=== PATIENT | female | born 2000 | race African-American/Black ===

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

== ENCOUNTER 2020-06-27 19:35 | Emergency (ER) | payer MEDICAID ==
[~2020-06-27] VITALS: Ht 162.6 cm; Wt 52.6 kg
[2020-06-27] MEDS ORDERED: Morphine Sulfate 4mg/ml Inj (IV USE ONLY) IVP ONE ×3 (20:15→23:30)
--- NOTE | 2020-06-27 20:19 | NUR ---
[facility] [place]
--- NOTE | 2020-06-27 20:25 | NUR ---
ED Nurse Note: Recieved pt from home, here with c/o severe abdominal pain with nausea and vomiting x 2 days after drinking alcohol, pt denies fevers, diarrhea, chest pain, sob, or any other complaints, pt states she has hx of gastritis and this has happend before, pt immediately gowned and placed on monitoring, IV line palced and labs drawn, will resume care as ordered and clsoely monitor, pt immediately medicated.
[2020-06-27 20:47] LABS: HEMATOCRIT 40.2 % (37.0-47.0); HEMOGLOBIN 13.8 G/DL (12.0-16.0); MEAN CORPUSCULAR VOLUME 92 FL (80-99); PLATELET COUNT 306 K/UL (150-450); RED BLOOD COUNT 4.36 M/UL (4.20-5.40); RED CELL DISTRIBUTION WIDTH 11.4 % (11.6-14.8); WHITE BLOOD COUNT 14.4 K/UL (4.8-10.8)
[2020-06-27 20:52] LABS: ANION GAP 13 mmol/L (5-15); BLOOD UREA NITROGEN 11 mg/dL (7-18); CARBON DIOXIDE 21 MMOL/L (21-32); CHLORIDE 104 MMOL/L (98-107); CREATININE 0.9 MG/DL (0.55-1.30); POTASSIUM 4.2 MMOL/L (3.5-5.1); SODIUM 138 MMOL/L (136-145)
[2020-06-27 21:04] LABS: ALANINE AMINOTRANSFERASE 16 U/L (12-78); ALBUMIN 4.7 G/DL (3.4-5.0); ALBUMIN/GLOBULIN RATIO 1.3 (1.0-2.7); ALKALINE PHOSPHATASE 62 U/L (46-116); ASPARTATE AMINO TRANSFERASE 20 U/L (15-37); BILIRUBIN,TOTAL 0.7 MG/DL (0.2-1.0)
[2020-06-27 21:10] VITALS: BP 119/59
[2020-06-27] MEDS ORDERED: Omnipaque-300 100ml vial INJ PRN (21:30)
--- NOTE | 2020-06-27 21:31 | Emergency Room Report ---
History of Present Illness General Chief Complaint: Nausea, Vomiting, and Diarrhea Source: Patient (Gomez Ramirez MD) Present Illness HPI 20-year-old female presents to ED for evaluation. Complaining of abdominal pain with nausea and vomiting. Multiple episodes of vomiting since 1 AM. Drank some shots of tequila. Pain is epigastric, burning, 8 out of 10, nonradiating. Denies any diarrhea. No other aggravating relieving factors. Denies any other associated symptoms (Gomez Ramirez MD) Allergies: Coded Allergies: No Known Allergies (Unverified , 06/01/16) COVID-19 Screening Contact w/high risk pt: No Experienced COVID-19 symptoms?: No COVID-19 Testing performed ELEMENTARY READING TUTOR: No (Gomez Ramirez MD) Patient History Past Medical History: none Past Surgical History: none Pertinent Family History: none Social History: Denies: smoking, alcohol use, drug use Now: No Immunizations: UTD Reviewed Nursing Documentation: PMH: Agreed; PSxH: Agreed (Gomez Ramirez MD) Nursing Documentation-PMH Past Medical History: No Stated History (Gomez Ramirez MD) Review of Systems All Other Systems: negative except mentioned in HPI (Gomez Ramirez MD) Physical Exam Vital Signs Date Time Temp Pulse Resp B/P (MAP) Pulse Ox O2 Delivery O2 Flow Rate FiO2 06/27/20 20:12 98.4 67 16 96/56 (69) 100 Room Air Sp02 EP Interpretation: reviewed, normal General Appearance: alert, GCS 15, non-toxic, mild distress Head: normocephalic, atraumatic Eyes: bilateral eye normal inspection, bilateral eye PERRL ENT: hearing grossly normal, normal pharynx, no angioedema, normal voice Neck: full range of motion, supple/symm/no masses Respiratory: chest non-tender, lungs clear, normal breath sounds, speaking full sentences Cardiovascular #1: regular rate, rhythm, no edema Cardiovascular #2: 2+ carotid (R), 2+ carotid (L), 2+ radial (R), 2+ radial (L), 2+ dorsalis pedis (R), 2+ dorsalis pedis (L) Gastrointestinal: normal bowel sounds, soft, non-distended, no guarding, no rebound, tenderness - epigastric Rectal: deferred Genitourinary: normal inspection, no CVA tenderness Musculoskeletal: back normal, normal range of motion, gait/station normal, non- tender Neurologic: alert, motor strength/tone normal, oriented x3, sensory intact, responsive, speech normal Psychiatric: judgement/insight normal, memory normal, mood/affect normal, no suicidal/homicidal ideation Reflexes: 3+ bicep (R), 3+ bicep (L), 3+ tricep (R), 3+ tricep (L), 3+ knee (R), 3+ knee (L) Skin: no rash Lymphatic: no adenopathy (Gomez Ramirez MD) Medical Decision Making Diagnostic Impression: Primary Impression: Hyperemesis gravidarum Additional Impression: First trimester ER Course Patient was signed out to me. She presents with epigastric pain with nausea and vomiting. She is . Ultrasound shows 6-week IUP. The symptom is consistent with hyperemesis gravidarum. Patient felt better now. She has Zofran at home. No evidence of ectopic or torsion. No evidence of an acute abdomen. Will discharge home. (Negrito Gonzalez MD) CT/MRI/US Diagnostic Results CT/MRI/US Diagnostic Results : Imaging Test Ordered: OB ultrasound Impression Read by radiologist. 6 weeks IUP. No other abnormality seen. (Negrito Gonzalez MD) Last Vital Signs Date Time Temp Pulse Resp B/P (MAP) Pulse Ox O2 Delivery O2 Flow Rate FiO2 06/27/20 20:12 98.4 67 16 96/56 (69) 100 Room Air (Gomez Ramirez MD) Status: improved (Negrito Gonzalez MD) Disposition: HOME, SELF-CARE Condition: Improved Scripts Hydrocodone/Acetaminophen 5-325* (HYDROCODONE/ACETAMINOPHEN 5-325*) 1 Each Tablet 1 TAB ORAL Q6H PRN for For Pain, #10 TAB 0 Refills Prov: Negrito Gonzalez MD 06/27/20 Ondansetron Odt* (ZOFRAN ODT*) 4 Mg Tab.rapdis 4 MG BC EVERY 6 HOURS PRN for Nausea & Vomiting, #20 TAB 0 Refills Prov: Negrito Gonzalez MD 06/27/20 Referrals: NON PHYSICIAN (PCP) Additional Instructions: Follow-up with your doctor in 7 days. Return if symptoms worsen. Gomez Ramirez MD Jun 27, 2020 21:31 Negrito Gonzalez MD Jun 27, 2020 23:38
--- NOTE | 2020-06-27 22:00 | NUR ---
ED Nurse Note: Pt medicated as ordered, meds slightly effective with pain at 5/10 and mild nausea, emesis resolved for now, pt denies chest pain, sob, or any acute changes, pt has positive test, informed by MD, pt now waiting for ultrasound, v/s stable, IV site patent with fluids completed, pt ambulated to bathroom and tolerated well, pt in bed conversing on phone with mother and family, nad noted at this time, will continue to monitor.
--- NOTE | 2020-06-27 23:14 | Diagnostic Imaging Report ---
EXAM: US First Trimester , Transabdominal and Transvaginal CLINICAL HISTORY: ABD PAIN TECHNIQUE: Real-time transabdominal and transvaginal obstetrical ultrasound of the maternal pelvis and a first trimester with image documentation. Transvaginal imaging was used for better evaluation of the fetus and adnexa. COMPARISON: No relevant prior studies available. FINDINGS: Gestation: Single viable uterine single viable intrauterine gestation. heart rate 1 65 bpm. CRL 0.3cm, 6 weeks 0 days. TRISHA: Ultrasound TRISHA 02/20/2021 Placenta/amniotic fluid: Cannot be adequately evaluated due to the early gestational age. Uterus/cervix: Unremarkable. No myometrial mass. Ovaries: Right ovary 4.417 Left ovary 3.4 similar No mass. Free fluid: No free fluid. Other findings: No acute abnormality seen. IMPRESSION: 1. Single viable uterine single viable intrauterine gestation. 2. Consistent with 6 week 0 day . 3. No acute abnormality seen.
[2020-06-27 23:15] VITALS: BP 124/63
[2020-06-27 23:30] VITALS: BP 125/56
[2020-06-27] MEDS ORDERED: Acetaminophen 500mg (ES) tab ORAL ONE (23:36)
[2020-06-27] MEDS ORDERED: ONDANSETRON ODT4 MG BC (23:37)
[2020-06-27] MEDS ORDERED: HYDROCODON-ACE1 EA15 ORAL (23:37)
--- NOTE | 2020-06-28 00:10 | NUR ---
ED Nurse Note: pt returned from imaging, ultrasound completed, tolerated well, no changes noted, pt states her pain is increasing, informed, med orders given, will re-medicate as ordered and prepare for pt disposition after imaging results.
[2020-06-28 00:30] VITALS: BP 119/59
--- NOTE | 2020-06-28 00:30 | NUR ---
ER DISCHARGE NOTE: Patient is cleared to be discharged per ERMD, pt is aox4, on room air, with stable vital signs. pt was given dc and prescription instructions, pt was able to verbalize understanding, pt id band and iv site removed without complications. pt is able to ambulate with steady gait. pt took all belongings.pt mother present to drive her home.
== END 2020-06-28 00:30 | disposition home or self-care (01) ==
LOC: EMR 20:10
DX: O21.0 Mild hyperemesis gravidarum (principal); Z3A.01 Less than 8 weeks gestation of pregnancy
CPT/HCPCS: 36415; 76801; 76817; 80053; 83690; 84702; 84703; 85007; 85025; 96361; 96374; 96375; 96376; J2270; J2405; S0028; Z7502; 99284